=== PATIENT | female | born 1945 | race Caucasian/White ===

== ENCOUNTER 2018-02-18 08:54 | Outpatient (CLI) | payer OTHER ==
[~2018-02-18 08:54] MED LIST: GLIMEPIRIDE1 MG PO
== END 2018-02-18 09:00 | disposition home or self-care (01) ==
LOC: RAD 08:54
DX: R50.9 Fever, unspecified (principal); R05 Cough

== ENCOUNTER 2018-03-10 12:43 | Outpatient (CLI) | payer OTHER | END 2018-03-10 12:52 | disposition home or self-care (01) | LOC: TOM 12:43 | DX: J01.10 Acute frontal sinusitis, unspecified (principal) ==

== ENCOUNTER 2018-03-22 10:29 | Outpatient (CLI) | payer OTHER | END 2018-03-22 15:16 | disposition home or self-care (01) | LOC: TOM 10:29 | DX: J92.9 Pleural plaque without asbestos (principal) ==

== ENCOUNTER 2018-06-27 22:53 | Emergency (ER) | payer OTHER ==
[~2018-06-27] VITALS: Ht 154.9 cm; Wt 77.1 kg
[2018-06-27] MEDS ORDERED: FORTAMET1000 MG (23:36)
[2018-06-27] MEDS ORDERED: HUMULIN 70100 UNIT/2 (23:37)
== END 2018-06-28 11:02 | disposition home or self-care (01) ==
LOC: ER 22:53
DX: K29.70 Gastritis, unspecified, without bleeding (principal); N20.0 Calculus of kidney

== ENCOUNTER 2018-11-24 09:48 | Outpatient (CLI) | payer OTHER ==
[~2018-11-24 09:48] MED LIST changes: +FORTAMET1000 MG; +HUMULIN 70100 UNIT/2
== END 2018-11-24 09:50 | disposition home or self-care (01) ==
LOC: TOM 09:48
DX: R91.1 Solitary pulmonary nodule (principal)

== ENCOUNTER 2019-02-15 08:17 | Outpatient (CLI) | payer OTHER | END 2019-02-15 08:28 | disposition home or self-care (01) | LOC: RAD 08:17 | DX: M25.561 Pain in right knee (principal); M25.562 Pain in left knee; M25.551 Pain in right hip; M25.552 Pain in left hip ==

== ENCOUNTER 2019-07-28 07:45 | Inpatient (IN) | payer OTHER ==
[~2019-07-28] VITALS: Ht 157.5 cm; Wt 72.6 kg
[2019-07-28] MEDS ORDERED: LEVO-T100 MCG PO (09:37)
[2019-07-28] MEDS ORDERED: COZAAR100 MG PO (09:37)
[2019-07-28] MEDS ORDERED: LANTUS SOL100 UNIT/1 (09:37)
[2019-07-28] MEDS ORDERED: LIPITOR40 MG PO (09:38)
[2019-07-28] MEDS ORDERED: JANUMET 50-1,01 EACH PO (11:14)
[2019-08-10] MEDS ORDERED: ELIQUIS2.5 MG PO (15:49)
[2019-08-10] MEDS ORDERED: DUI500 PO (15:49)
[2019-08-10] MEDS ORDERED: PERCOCET 5-3251 EACH PO (15:49)
== END 2019-08-10 20:41 | DRG 470 ==
LOC: O/R 08-08 05:55 → SURH 08-08 05:55 → O/R 08-08 07:45 → SURG 08-08 13:46 → SURH 08-08 14:50
PROVIDERS: ADMIT Orthopaedic Surgery
PROC: 0MNN0ZZ Release Right Knee Bursa and Ligament, Open Approach (ICD-10-PCS; 2019-08-08)
PROC: 0SRC0J9 Replacement of Right Knee Joint with Synthetic Substitute, Cemented, Open Approach (ICD-10-PCS; principal; 2019-08-08 07:00)
DX: M17.11 Unilateral primary osteoarthritis, right knee (principal); D62 Acute posthemorrhagic anemia; M22.11 Recurrent subluxation of patella, right knee; I10 Essential (primary) hypertension; M85.461 Solitary bone cyst, right tibia and fibula; E03.8 Other specified hypothyroidism; E11.65 Type 2 diabetes mellitus with hyperglycemia; Z79.4 Long term (current) use of insulin

== ENCOUNTER 2019-11-19 07:14 | Inpatient (IN) | payer OTHER ==
[~2019-11-19] VITALS: Ht 154.9 cm; Wt 75.3 kg
[~2019-11-19 07:14] MED LIST changes: +COZAAR100 MG PO; +DUI500 PO; +ELIQUIS2.5 MG PO; +JANUMET 50-1,01 EACH PO; +LANTUS SOL100 UNIT/1; +LEVO-T100 MCG PO; +LIPITOR40 MG PO; +PERCOCET 5-3251 EACH PO
== END 2019-11-21 16:13 | disposition home or self-care (01) | DRG 661 ==
LOC: ER 07:14 → SEC-K 14:09 → SURH 14:09 → O/R 17:58 → SURH 18:31
PROVIDERS: ADMIT Surgery
PROC: BW21ZZZ Computerized Tomography (CT Scan) of Abdomen and Pelvis (ICD-10-PCS; 2019-11-19)
PROC: 0T778DZ Dilation of Left Ureter with Intraluminal Device, Via Natural or Artificial Opening Endoscopic (ICD-10-PCS; principal; 2019-11-19 22:00)
DX: N20.1 Calculus of ureter (principal); E11.65 Type 2 diabetes mellitus with hyperglycemia; I13.10 Hypertensive heart and chronic kidney disease without heart failure, with stage 1 through stage 4 chronic kidney disease, or unspecified chronic kidney disease; N18.3 Chronic kidney disease, stage 3 (moderate)

== ENCOUNTER → 2019-11-28 08:16 | Outpatient (CLI) | payer OTHER | END | disposition home or self-care (01) | LOC: RAD 08:16 | DX: N20.1 Calculus of ureter (principal) ==

== ENCOUNTER 2019-12-05 05:35 | Day surgery (SDC) | payer OTHER ==
[~2019-12-05 05:35] MED LIST changes: +GLIMEPIRIDE4 M1 PO; +JANUMET XR 50-1 EAC1 PO
== END 2019-12-05 13:54 | disposition home or self-care (01) ==
LOC: CIR.AMB 05:35
DX: N20.0 Calculus of kidney (principal)

== ENCOUNTER 2020-02-28 13:06 | Outpatient (CLI) | payer OTHER | END 2020-02-28 13:13 | disposition home or self-care (01) | LOC: RAD 13:06 → MAMO-SONO 13:45 | PROVIDERS: ATTEND Surgery | DX: N20.1 Calculus of ureter (principal) ==

== ENCOUNTER → 2020-03-06 10:24 | Outpatient (CLI) | payer OTHER | END | disposition home or self-care (01) | LOC: LAB 10:24 | PROVIDERS: ATTEND Radiology Diagnostic Radiology | DX: N20.0 Calculus of kidney (principal) ==

== ENCOUNTER 2020-03-07 08:00 | Outpatient (CLI) | payer OTHER | END 2020-03-07 08:05 | disposition home or self-care (01) | LOC: SONOGRAMA 08:00 | PROVIDERS: ATTEND Surgery | DX: N13.39 Other hydronephrosis (principal) | CPT/HCPCS: 74178; Q9965 ==

== ENCOUNTER 2020-03-29 09:48 | Outpatient (CLI) | payer OTHER | END 2020-03-29 09:52 | disposition home or self-care (01) | LOC: RAD 09:48 | PROVIDERS: ATTEND Urology | DX: N20.1 Calculus of ureter (principal) ==

== ENCOUNTER 2020-04-08 11:41 | Outpatient (CLI) | payer OTHER | END 2020-04-08 11:43 | disposition home or self-care (01) | LOC: RAD 11:41 | PROVIDERS: ATTEND Urology | DX: N20.1 Calculus of ureter (principal) ==

== ENCOUNTER → 2021-04-21 16:10 | Outpatient (CLI) | payer OTHER | END | disposition home or self-care (01) | LOC: PPH VACUNA 16:10 | PROVIDERS: ATTEND Emergency Medicine Pediatric Emergency Medicine | DX: Z23 Encounter for immunization (principal) ==

== ENCOUNTER 2021-08-25 07:56 | Outpatient (CLI) | payer OTHER | END 2021-08-25 08:10 | disposition home or self-care (01) | LOC: TOM 07:56 | PROVIDERS: ATTEND Family Medicine | DX: N20.0 Calculus of kidney (principal); K42.9 Umbilical hernia without obstruction or gangrene; N28.89 Other specified disorders of kidney and ureter; K57.90 Diverticulosis of intestine, part unspecified, without perforation or abscess without bleeding; K44.9 Diaphragmatic hernia without obstruction or gangrene; R10.84 Generalized abdominal pain; E11.9 Type 2 diabetes mellitus without complications; K58.0 Irritable bowel syndrome with diarrhea ==

== ENCOUNTER 2022-03-23 12:11 | Outpatient (CLI) | payer OTHER | END 2022-03-23 12:12 | disposition home or self-care (01) | LOC: SONOGRAMA 12:11 | PROVIDERS: ATTEND Internal Medicine Endocrinology, Diabetes & Metabolism | DX: E04.1 Nontoxic single thyroid nodule (principal) ==

== ENCOUNTER 2022-08-20 07:40 | Outpatient (CLI) | payer OTHER | END 2022-08-20 07:49 | disposition home or self-care (01) | LOC: MAMO-SONO 07:40 | PROVIDERS: ATTEND Family Medicine | DX: Z12.31 Encounter for screening mammogram for malignant neoplasm of breast (principal); N60.19 Diffuse cystic mastopathy of unspecified breast ==

== ENCOUNTER 2023-03-10 15:56 | Emergency (ER) | payer OTHER ==
[~2023-03-10] VITALS: Ht 154.9 cm; Wt 65.8 kg
[2023-03-10] MEDS ORDERED: INTESTINEX680 M1 PO (21:01)
[2023-03-10] MEDS ORDERED: ZOFRAN8 MG PO (21:01)
[2023-03-10] MEDS ORDERED: PEPCID AC20 MG PO (21:01)
== END 2023-03-10 21:10 | disposition home or self-care (01) ==
LOC: ER 15:56
DX: R10.84 Generalized abdominal pain (principal); E03.9 Hypothyroidism, unspecified; I10 Essential (primary) hypertension; E11.65 Type 2 diabetes mellitus with hyperglycemia; Z79.84 Long term (current) use of oral hypoglycemic drugs; Z20.822 Contact with and (suspected) exposure to COVID-19
CPT/HCPCS: 36415; 96365; 96366; 99284; J2405; J3490; J7042

== ENCOUNTER 2023-05-20 08:46 | Outpatient (CLI) | payer OTHER ==
[~2023-05-20 08:46] MED LIST changes: +INTESTINEX680 M1 PO; +PEPCID AC20 MG PO; +ZOFRAN8 MG PO
== END 2023-05-20 08:50 | disposition home or self-care (01) ==
LOC: RAD 08:46
DX: Z01.818 Encounter for other preprocedural examination (principal); M20.12 Hallux valgus (acquired), left foot; M20.11 Hallux valgus (acquired), right foot

== ENCOUNTER 2024-09-21 09:44 | Outpatient (CLI) | payer OTHER | END 2024-09-21 09:47 | disposition home or self-care (01) | LOC: RAD 09:44 | PROVIDERS: ATTEND Ophthalmology | DX: I10 Essential (primary) hypertension (principal); Z01.811 Encounter for preprocedural respiratory examination ==